=== PATIENT | male | born 1990 | race Caucasian/White ===

== ENCOUNTER 2017-01-28 15:01 | Emergency (ER) | payer OTHER ==
[~2017-01-28] VITALS: Ht 177.8 cm; Wt 94.7 kg
[~2017-01-28 15:01] MED LIST: INDOCIN25 MG PO; KEFLEX500 MG PO; MOTRIN600 MG PO; NAPROSYN500 MG PO; NAPROXEN500 MG PO; NOHOMEMEDS; NORCO 7.5/321 TABLET PO; PREDNISONE20 MG PO; TRAMADOL HCL50 MG PO
[2017-01-28] MEDS ORDERED: PERCOCET 5/31 TABLET PO (18:17)
[2017-01-28 18:33] VITALS: BP 130/93
== END 2017-01-28 18:33 | disposition home or self-care (01) ==
LOC: EME 15:01
PROC: 2W3CX1Z Immobilization of Right Lower Arm using Splint (ICD-10-PCS; principal; 2017-01-28)
DX: S62.001A Unspecified fracture of navicular [scaphoid] bone of right wrist, initial encounter for closed fracture (principal); W17.89XA Other fall from one level to another, initial encounter; F17.200 Nicotine dependence, unspecified, uncomplicated
CPT/HCPCS: 73110; 73130; 99281; 99284

== ENCOUNTER 2017-05-17 19:43 | Emergency (ER) | payer BC ==
[~2017-05-17] VITALS: Ht 180.3 cm; Wt 100.0 kg
[~2017-05-17 19:43] MED LIST changes: +PERCOCET 5/31 TABLET PO
[2017-05-17] MEDS ORDERED: MOTRIN800 MG PO (20:24)
[2017-05-17] MEDS ORDERED: NORCO 7.5/321 TABLET PO (20:24)
[2017-05-17] MEDS ORDERED: VALIUM5 MG PO (20:24)
[2017-05-17 21:13] VITALS: BP 131/89
== END 2017-05-17 21:15 | disposition home or self-care (01) ==
LOC: EME 19:43
DX: S39.012A Strain of muscle, fascia and tendon of lower back, initial encounter (principal); Y99.0 Civilian activity done for income or pay; Y93.H2 Activity, gardening and landscaping; F17.200 Nicotine dependence, unspecified, uncomplicated
CPT/HCPCS: 99281; 99283; J3010

== ENCOUNTER 2018-01-01 12:32 | Emergency (ER) | payer BC ==
[~2018-01-01] VITALS: Ht 177.8 cm; Wt 92.7 kg
[~2018-01-01 12:32] MED LIST changes: +MOTRIN800 MG PO; +VALIUM5 MG PO
[2018-01-01] MEDS ORDERED: NAPROSYN500 MG PO (13:04)
[2018-01-01] MEDS ORDERED: MEDROL DOSEPAK4 MG PO (13:04)
[2018-01-01 13:36] VITALS: BP 122/67
== END 2018-01-01 13:36 | disposition home or self-care (01) ==
LOC: EME 12:32
DX: M54.5 Low back pain (principal); G89.29 Other chronic pain; E78.5 Hyperlipidemia, unspecified; G43.909 Migraine, unspecified, not intractable, without status migrainosus; R56.9 Unspecified convulsions; F17.200 Nicotine dependence, unspecified, uncomplicated
CPT/HCPCS: 99281; 99283; J1885